=== PATIENT | male | born 1935 | race Caucasian/White ===

== ENCOUNTER → 2019-03-06 09:54 | Outpatient (CLI) | payer MEDICARE, SELFPAY ==
--- NOTE | 2019-03-06 10:11 | EKG12_ITS ---
Test Reason : PRE-OP Blood Pressure : / mmHG Vent. Rate : 079 BPM Atrial Rate : 079 BPM P-R Int : 224 ms QRS Dur : 090 ms QT Int : 386 ms P-R-T Axes : 067 031 052 degrees QTc Int : 442 ms Sinus rhythm with 1st degree A-V block with frequent Premature ventricular complexes and Fusion compl exes Otherwise normal ECG Confirmed by BIRGIT SCHILLING ([id number]), desk editor TARYN QUINTEROS ([id number]) on 03/10/2019 2:21:11 PM Referred By: Lucas Mcdaniel Confirmed By:SAMY SCHILLING
== END ==
LOC: LAB 10:05 → PSN 10:10
PROVIDERS: Referring Provider Urology; Visit Provider Urology
DX: N20.0 Calculus of kidney (principal); R31.9 Hematuria, unspecified
CPT/HCPCS: 87086; 87088; 93005